=== PATIENT | male | born 1955 | race Caucasian/White ===

== ENCOUNTER 2018-06-16 02:16 | Outpatient (CLI) | payer BC, SELFPAY ==
[2018-06-16 11:21] LABS: Anion Gap 9.7 mmol/L (3-11); BUN 18 mg/dL (7-18); CO2 28.3 mmol/L (21.0-32.0); CREATININE 1.04 mg/dL (0.70-1.30); Calcium 9.3 mg/dL (8.5-10.1); Chloride 102 mmol/L (98-107); Glucose 116 mg/dL (70-100); Potassium 4.4 mmol/L (3.5-5.1); Sodium 140 mmol/L (136-145)
== END 2018-06-16 02:36 ==
PROVIDERS: PCP Family Medicine; Visit Provider Family Medicine
DX: I10 Essential (primary) hypertension (principal)
CPT/HCPCS: 36415; 80048

== ENCOUNTER 2019-06-05 01:23 | Outpatient (CLI) | payer BC, SELFPAY ==
[2019-06-05 11:37] LABS: Anion Gap 6.2 mmol/L (3-11); BUN 19 mg/dL (7-18); CO2 31.8 mmol/L (21.0-32.0); CREATININE 0.89 mg/dL (0.70-1.30); Calcium 9.4 mg/dL (8.5-10.1); Calculated LDL 137 mg/dL; Chloride 103 mmol/L (98-107); Cholesterol 178 mg/dL (<200); Glucose 116 mg/dL (74-106); HDL Cholesterol 31 mg/dL (40-60); Potassium 4.6 mmol/L (3.5-5.1); Sodium 141 mmol/L (136-145); Triglyceride 54 mg/dL (<150)
== END 2019-06-05 01:43 ==
PROVIDERS: PCP Family Medicine; Visit Provider Family Medicine
DX: E78.5 Hyperlipidemia, unspecified (principal); I10 Essential (primary) hypertension
CPT/HCPCS: 36415; 80048; 80061

== ENCOUNTER 2020-03-03 04:15 | Outpatient (CLI) | payer BC, SELFPAY ==
[2020-03-03 13:20] LABS: TSH 13.59 uIU/mL (0.36-3.74)
== END 2020-03-03 04:35 ==
LOC: LBO 04:15 → LOS 09:44
PROVIDERS: PCP Nurse Practitioner Family; Visit Provider Nurse Practitioner Family
DX: E03.9 Hypothyroidism, unspecified (principal); I10 Essential (primary) hypertension
CPT/HCPCS: 36415; 83036; 84439; 84443

== ENCOUNTER → 2020-04-13 04:14 | Outpatient (CLI) | payer BC, SELFPAY ==
[2020-04-13 17:07] LABS: Calculated LDL 132 mg/dL (<100); Cholesterol 181 mg/dL (<200); HDL Cholesterol 30 mg/dL (40-60); TSH 5.68 uIU/mL (0.36-3.74); Triglyceride 98 mg/dL (<150)
== END ==
PROVIDERS: PCP Nurse Practitioner Family; Visit Provider Nurse Practitioner Family
DX: E03.9 Hypothyroidism, unspecified (principal); E78.2 Mixed hyperlipidemia; Z12.5 Encounter for screening for malignant neoplasm of prostate; Z80.42 Family history of malignant neoplasm of prostate
CPT/HCPCS: 36415; 80061; 84153; 84443

== ENCOUNTER 2020-06-03 03:41 | Outpatient (CLI) | payer BC, SELFPAY ==
[2020-06-03 17:10] LABS: FREE T4 1.18 ng/dL (0.76-1.46); TSH 0.16 uIU/mL (0.36-3.74)
== END 2020-06-03 04:01 ==
PROVIDERS: Nurse Practitioner Family; PCP Nurse Practitioner Family; Visit Provider Nurse Practitioner Family
DX: E03.9 Hypothyroidism, unspecified (principal)
CPT/HCPCS: 36415; 84439; 84443

== ENCOUNTER 2020-11-18 04:08 | Outpatient (CLI) | payer BC, SELFPAY ==
--- NOTE | 2020-11-18 16:11 | DI.RAD_ITS ---
Exam(s) XR SHOULDER RT COMPLETE 2+V EXAM: XR SHOULDER RT COMPLETE 2+V CLINICAL HISTORY: RT SHOULDER PAIN, TECHNIQUE: COMPARISON: No exams were available for comparison FINDINGS: Five views were obtained. The cartilaginous joint space of the glenohumeral joint may be slightly na rrowed. There are mild marginal osteophytes of the glenoid and humeral head. Mild hypertrophic dege nerative changes of the AC joint noted as well. No other significant bony or soft tissue change seen . IMPRESSION: Moderate degenerative changes of glenohumeral and AC joint. RADIATION DOSE DELIVERED: Total DLP
== END 2020-11-18 04:28 ==
PROVIDERS: PCP Nurse Practitioner Family; Visit Provider Chiropractor Orthopedic
DX: M25.511 Pain in right shoulder (principal); M19.011 Primary osteoarthritis, right shoulder
CPT/HCPCS: 73030

== ENCOUNTER 2021-08-14 03:19 | Outpatient (CLI) | payer BC, SELFPAY ==
[2021-08-14 18:50] LABS: ALT 31 U/L (16-63); AST 15 U/L (15-37); Alkaline Phosphatase 96 U/L (46-116); Anion Gap 7.1 mmol/L (3-11); BUN 18 mg/dL (7-18); Bilirubin, Total 0.4 mg/dL (0.2-1.0); CO2 31.9 mmol/L (21.0-32.0); Calcium 9.6 mg/dL (8.5-10.1); Chloride 101 mmol/L (98-107); Glucose 136 mg/dL (74-106); Potassium 3.6 mmol/L (3.5-5.1); Sodium 140 mmol/L (136-145); TSH 22.96 uIU/mL (0.36-3.74); Total Protein 7.3 g/dL (6.4-8.2)
== END 2021-08-14 03:20 | disposition home or self-care (01) ==
LOC: LBO 03:19
PROVIDERS: PCP Nurse Practitioner Family; Visit Provider Nurse Practitioner Family
DX: I10 Essential (primary) hypertension (principal); E03.9 Hypothyroidism, unspecified
CPT/HCPCS: 36415; 80053; 84443

== ENCOUNTER 2022-08-24 01:29 | Outpatient (CLI) | payer MEDICARE, SELFPAY ==
[2022-08-24 12:47] LABS: CREATININE 1.1 mg/dL (0.70-1.30); Calculated LDL 98 mg/dL (<100); Cholesterol 146 mg/dL (<200); Estimated GFR 74.04 (mL/min/1.73m2); HDL Cholesterol 31 mg/dL (40-60); Potassium 4.3 mmol/L (3.5-5.1); TSH 2.55 uIU/mL (0.36-3.74); Triglyceride 87 mg/dL (<150)
== END 2022-08-24 01:30 | disposition home or self-care (01) ==
LOC: LOS 01:30
PROVIDERS: PCP Nurse Practitioner Family; Visit Provider Nurse Practitioner Family
DX: E03.9 Hypothyroidism, unspecified (principal); I10 Essential (primary) hypertension; E78.5 Hyperlipidemia, unspecified; R13.10 Dysphagia, unspecified
CPT/HCPCS: 36415; 80061; 99214; 99242; 82565; 84132; 84443

== ENCOUNTER 2022-08-30 10:33 | Day surgery (SDC) | payer MEDICARE, SELFPAY ==
[2022-08-30 10:55] VITALS: BP 170/99; PULSE 57; RESP 16; TEMP 36.4; O2SAT 99
--- NOTE | 2022-08-30 11:10 | W.ANESPRE ---
General Info Date of Service Date Performed: 08/30/22 Height: 5 ft 6 in Weight: 90.9 kg Body Mass Index (BMI): 32.3 Surgical Procedure: Operation Date: 08/30/22 12:35 Proposed Procedure Side Surgeon p Gastroscopy with Possible Dilation Diogenes Serrano MD Meds Allergies and Home Medications Allergies Allergy/AdvReac Type Severity Reaction Status Date / Time No Known Allergies Allergy Verified 08/29/22 10:09 Home Medication Medication Instructions Recorded lorazepam 0.5 mg tablet 0.5 mg PO as directed PRN #5 tabs 05/30/18 sildenafil 100 mg tablet 100 mg PO ONCE #7 tabs 06/02/19 aspirin 81 mg tablet,delayed 81 mg PO DAILY 07/12/21 release levothyroxine 125 mcg tablet 125 mcg PO DAILY #90 tab-caps 08/18/21 lovastatin 40 mg tablet 80 mg PO HS #180 tabs 02/23/22 sertraline 50 mg tablet 50 mg PO DAILY #90 tab-caps 06/07/22 omeprazole 20 mg capsule,delayed 20 mg PO DAILY #90 tab-caps 06/27/22 release lisinopril 30 mg tablet 30 mg PO DAILY #90 tab-caps 08/09/22 tetanus,diphtheria tox ped(PF) 5 0.5 ml IM ONCE #0.5 mL 08/09/22 Lf unit-25 Lf unit/0.5 mL IM susp Current Visit Medications: Current Medications Generic Name Dose Route Start Last Admin Trade Name Freq PRN Reason Stop Dose Admin Ringer's Solution 1,000 mls @ 80 mls/hr 08/30/22 06:00 IV 09/28/22 23:59 INFUSION SAM IV Miscellaneous Supplies 1 each 08/30/22 06:00 Iv Access IV 09/28/22 23:59 DIRECTED SAM Sodium Chloride 0 ml 08/30/22 06:00 Normal Saline Flush 10 Ml Syr IV 09/28/22 23:59 PRN PRN Sodium Chloride 0 ml 08/30/22 06:00 Normal Saline 10 Ml Vial IJ 09/28/22 23:59 DIRECTED PRN Sterile Water 0 ml 08/30/22 06:00 Water,Injection,Sterile 10 Ml Vial IJ 09/28/22 23:59 DIRECTED PRN PFSH Active Problems Active Problems: Problem Status Onset Code Essential hypertension 01/15/14 I10 Anxiety 01/04/17 F41.9 Carotid artery stenosis I65.29 Esophagitis 09/24/14 K20.9 Hyperlipidemia E78.5 Hypothyroidism E03.9 Prediabetes R73.03 Impingement syndrome of right shoulder M75.41 Tendonitis of long head of biceps brachii of right shoulder M75.21 Vertigo R42 Nail dystrophy L60.3 Difficulty swallowing R13.10 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 GERD (gastroesophageal reflux disease) K21.9 Medical History Medical History (Updated 08/30/22 @ 11:02 by Stephanie Tovar) Cardiovascular disease Family history of prostate cancer in father FH: carotid endarterectomy FH: carotid endarterectomy Tibia fracture Surgical History Surgical History Colonoscopy - IV Sedation (04/09/16) Status post carotid endarterectomy Tobacco Smoking/Tobacco Use Status: Never Passive smoking exposure: Yes Second hand exposure: Yes Alcohol Alcohol Intake: current Alcohol intake frequency: a few times a week Alcohol type: hard liquor Substance Use Substance use: Never Substance use type: does not use Vital Signs and Lab Results Vital Signs Most Recent Vital Signs in EMR: Most Recent Vital Signs Temp Pulse Resp BP Pulse Ox 36.4 C L 57 L 16 170/99 H 99 08/30/22 10:55 08/30/22 10:55 08/30/22 10:55 08/30/22 10:55 08/30/22 10:55 Lab Results Blood Type / Crossmatch: No Data to Display Complete Blood Count: No Data to Display Complete Metabolic Panel: Potassium 4.3 mmol/L (3.5-5.1) 08/24/22 08:02 Creatinine 1.1 mg/dL (0.70-1.30) 08/24/22 08:02 Est GFR (CKD-EPI 2020) 74.04 (mL/min/1.73m2) 08/24/22 08:02 Liver Function Panel: No Data to Display Coagulation Panel: No Data to Display Cardiac Panel: No Data to Display Arterial Blood Gas: No Data to Display Venous Blood Gas: No Data to Display Pancreas Panel: No Data to Display Thyroid Panel: Thyroid Stimulating Hormone (TSH) 2.55 uIU/mL (0.36-3.74) 08/24/22 08:02 Infectious Disease: No Data to Display Blood Cultures: No Data to Display Toxicology Panel: No Data to Display Anesthesia Assessment and Plan Anesthesia History Personal History: No History of Anesthesia Complications Family History: No Family History of Anesthesia Complications Exercise Tolerance Exercise Tolerance: Metabolic Equivalents>4 Pertinent Negatives Pertinent Negatives: No Symptoms of GERD Cardiac & Pulmonary Exam Cardiac Exam: Normal S1/S2 Heart Sounds Pulmonary Exam: Clear Bilateral Breath Sounds Implantable Cardiac Device Does patient have a Pacemaker or an ICD?: No Airway Exam Known Difficult Airway: No Mallampati Class: 3 Mouth Opening: Normal (> 3cm) Thyromental Distance: Greater than 3 cm Neck Range of Motion: Full ROM Neck Circumference: Thick Teeth Condition: Normal Dentition ASA Classification ASA Score: ASA 2 Emergency Case?: No NPO Status NPO Status: NPO Clears >2 hours, Solids >8 hours Anesthesia Plan Resuscitation Status: Full Code Anesthesia Technique: General Anesthesia Airway Planned: Natural Airway Monitors Used: Standard Monitors
[2022-08-30] MEDS: Lactated Ringers 1,000 ML 80 ML IV (11:18)
[2022-08-30 11:40] VITALS: BMI 32.3
--- NOTE | 2022-08-30 11:42 | W.SURGCON ---
Date of service: 08/30/22 Time of Service: 11:45 Assessment and Plan Assessment and plan (1) GERD (gastroesophageal reflux disease): Status: Chronic Assessment and plan: 66-year-old man with chronic, mild dysphagia symptoms in the setting of long?standing GERD that is adequately treated(clinically) with PPI. There is no endoscopic report of stricture, Marshall's esophagus and no report of endoscopic dilation. There is endoscopic report of a 3-4 cm hiatal hernia. I suspect his symptoms of swallowing are related to his hiatal hernia(which was moderate in size 8 years ago) in conjunction with acid reflux also related to the hiatal hernia and his body habitus (BMI 32). He needs biopsies of his esophagus to rule out eosinophilic esophagitis as a potential cause of mild and chronic dysphagia and also biopsies would be helpful to assess for whether acid reflux is really an issue. His hiatal hernia might actually be a paraesophageal hernia if it is as big as mentioned. Will not be doing any dilating today but we will simply assess his foregut to get a better understanding of what is actually going on there. I explained this to him in simple and straightforward details and he understands and agrees with this management strategy. Overall plan: EGD History of Present Illness Narrative: I met Mr. Jenkins at the bedside before his EGD procedure. We discussed his symptoms and prior procedures. He self?reports that he had issues swallowing 8 years ago. He presented to the emergency department because of it. He has had 1 EGD done which was related to that event. It is his understanding that his esophagus was stretched at that time. He is not anticipating having anything stretched again today but just wants it looked at. He does not know anything about a hiatal hernia. Since then he was placed on omeprazole and his symptoms drastically improved and he reports that he has not really had any problems since. Certainly he has no new problems. He does say that when he swallows he has to be careful and sometimes certain foods feel like there close to getting stuck but nothing has gotten completely stuck and began, nothing is worse than it has been. He essentially says that the way he is this year in 2022 [address] he has been for many years. His concern is to reevaluate his esophagus and make sure that nothing bad is happening there. We reviewed his prior operative note which describes finding a 3-4 cm hiatal hernia, mild gastritis and visible evidence of reflux esophagitis. There is no mention in the scope of esophagus stricture and there is no mention of esophagus dilation. From what I can gather from the chart, biopsy was only done of the stomach and not of the esophagus lining. He has never had foregut or epigastric surgery. PFSH All Active Problems (Updated 08/30/22 @ 11:02 by Stephanie Tovar) Essential hypertension (Chronic 07/01/13) Anxiety (Chronic 01/04/17) Carotid artery stenosis (Acute) Esophagitis (Chronic 09/24/14) Hyperlipidemia (Chronic) Hypothyroidism (Chronic) Prediabetes (Chronic) Impingement syndrome of right shoulder (Acute) Tendonitis of long head of biceps brachii of right shoulder (Acute) Vertigo (Acute) Nail dystrophy (Acute) Difficulty swallowing (Acute) Atrophic testicle (Acute) GERD (gastroesophageal reflux disease) (Chronic) Medical History (Updated 08/30/22 @ 11:02 by Stephanie Tovar) Cardiovascular disease Family history of prostate cancer in father FH: carotid endarterectomy FH: carotid endarterectomy Tibia fracture Surgical History Colonoscopy - IV Sedation (04/09/16) Status post carotid endarterectomy Family History (Updated 07/27/21 @ 15:21 by Lena Hernandez) Mother Essential hypertension Heart disease Hyperlipidemia Stroke Father Diabetes Stroke Prostate cancer Colon cancer Brother Essential hypertension Hyperlipidemia Maternal Grandfather No problems noted. Paternal Grandfather , UNKNOWN at age 47. No problems noted. Maternal Grandmother No problems noted. Paternal Grandmother No problems noted. Sister Diabetes Sister Heart disease Other Family hx of prostate cancer Social History (Updated 08/09/22 @ 18:16 by Mary Lomax) Smoking/Tobacco Use Status: Never Second Hand Exposure: Yes Smoking risk assessment performed?: Yes Alcohol Intake: current Alcohol Intake frequency: a few times a week Alcohol type: hard liquor Drug use: Never Substance use type: does not use Caregiver/Support person: No Household members: spouse Housing: house Communication Needs: None Do you need help understanding health information?: Rarely Pets and animals: Yes Pets and animals: dog(s) Sexually active: Yes Do you think of yourself as: straight/heterosexual Current gender identity: male What is your relationship status?: How often do you talk on the phone with friends or family?: three or more times per week How often do you get together with friends or relatives?: once per week How often do you attend catholic or oriental orthodox services?: 1-3 times per year Do you belong to any clubs or organized social groups?: yes Panel score (0-1 are the most socially isolated patients): 3 What type of physical activity do you participate in: walking Duration: 30-45 minutes/day Frequency: 3-4 times per week Ame/Holiness: Jewish Special ame needs: No Seatbelt use: always Helmet use: No Drive intox or ride w/intox stacker driver: No Do you feel safe at home: Yes Do you feel safe in your relationship?: Yes Exam Narrative Exam Narrative: General: Nontoxic, comfortable and interactive Neuro: Alert and oriented x3 Psych: Appropriate mood and affect, good insight and understanding into his conditions Chest: Nonlabored breathing, no wheezing Heart: Regular Results Last Vital Signs Temp 97.5 F L 08/30/22 10:55 Pulse 57 L 08/30/22 10:55 Resp 16 08/30/22 10:55 BP 170/99 H 08/30/22 10:55 Pulse Ox 99 08/30/22 10:55
--- NOTE | 2022-08-30 11:54 | W.PM.ENDDOP ---
Date of service: 08/30/22 Time of Service: 12:16 Endoscopy Report PROCEDURE DESCRIPTION: Procedures performed: 1.? 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 It is controlled with PPI. For the last 8 years he has had chronic dysphagia. Rare upper endoscopy 8 years ago showed hiatal hernia and esophagitis. He then started PPI therapy and says his symptoms drastically improved and have remained improved though he still experiences some slight issues with swallowing. Findings: - D3, D2 and D1 - normal - no inflammation or ulcers - Pylorus - patent.? No bile reflux visualized during procedure. - Antrum - looks normal visually - biopsies taken to rule out occult H. pylori - Stomach Body - normal appearance - Fundus -? Normal appearance.? No polyps. - Hiatus - Retroflexion showed a moderate?size type III paraesophageal hiatal hernia. Hernia measures approximately(GE junction 3-4 cm above the diaphragm). - Esophagus - Distal esophagus does not look acutely or actively inflamed but there is mild/minimal circumferential scarring(probably related to active GERD years ago) and there are 2 very small (subcentimeter) strips extending up into the esophagus that visually appear to be Marshall's esophagus. In classic fashion, the distal esophagus has a slight fold/kink to it causing a valve?affect that can be appreciated visually and is related to the hernia. This is the likely cause of the dysphagia. Cold forceps biopsies were taken of the Marshall's segments. Separately cold forceps biopsies were taken of the distal esophagus and midesophagus to rule out eosinophilic esophagitis (not suspected). - Cords/hypopharynx - Normal OVERALL - moderate?size type III paraesophageal hernia is causing a valve?effect on the distal esophagus which is the underlying problem for his swallowing. Surveillance/follow-up recommendations: If Marshall's esophagus is confirmed on biopsy, I recommend surveillance every 3-5 years. The paraesophageal hernia is fixable and the patient should be counseled that minimally invasive paraesophageal hernia repair can be considered as a management strategy/option depending on his overall goals. BMI needs to be under 30 to be considered for paraesophageal hernia repair. Complications: None Blood loss: Minimal Specimens:? YES Procedure in detail: Written consent was obtained from the patient who was in agreement with the risks, benefits and indications of the procedure.? We went to the endoscopy suite and laid the patient in left lateral decubitus position.? Anesthesia was administered which was tolerated well.? A timeout was performed and when we are all in agreement we began the procedure. A well?lubricated endoscope was advanced without difficulty down the esophagus, into the stomach, through a patent pylorus and into the duodenum.? It was then slowly pulled back with findings noted above. The scope was then removed and the patient tolerated the procedure well and was then taken to the PACU in hemodynamically stable condition.
--- NOTE | 2022-08-30 12:00 | ESO_PTH ---
PATIENT: Tyler Enamorado LOC: GLO U#:[id number] AGE/SX: 66/M ROOM: RE08/30/[address]: Diogenes Serrano : 1955 BED: DIS: 08/30/2022 SPEC #: [id number] RECD: 08/30/22 12:46 STATUS: SHANTE RE #: [id number] TURNER: 08/30/22 12:[address]: Diogenes Serrano DEPT: Surgical Specimen RECD BY: Jazmin Fraser ENTERED: 08/30/22 12:47 SP TYPE: Eso EMANI DR: Timoteo Jama, FL[employer]K OFFICER Tissues: 1 - STOMACH BIOPSY 2 - ESOPHAGUS BIOPSY 3 - ESOPHAGUS BIOPSY 4 - ESOPHAGUS BIOPSY Procedures: GROSS AND MICRO LEVEL 4 Comments: [id number]
[2022-08-30 12:20] VITALS: BP 131/82; PULSE 70; RESP 18; TEMP 36.9; O2SAT 92
--- NOTE | 2022-08-30 13:03 | W.ANESPOSTOP ---
Postoperative Evaluation Date, Time and Location Date Performed: 08/30/22 Time Performed: 13:04 Patient Location: Day Surgery Unit Vital Signs Most Recent Imported Vital Signs: Most Recent Vital Signs Temp Pulse Resp BP Pulse Ox 36.9 C 70 18 131/82 92 08/30/22 12:20 08/30/22 12:20 08/30/22 12:20 08/30/22 12:20 08/30/22 12:20 Pain Score Most Recent Pain Score: Most Recent Pain Score Pain Level 0 08/30/22 12:20 Assessment Mental Status: Awake (Alert & Oriented to Patient Baseline) Airway and Respiratory Function: Patent airway with normal (patient baseline) respiratory exam Cardiovascular Function: Hemodynamically Stable Hydration Status: Adequately Hydrated Nausea & Vomiting: No Nausea or Vomiting Pain: Pt. Denies Any Pain Peripheral Nerve Block: Patient did not receive a nerve block
== END 2022-08-30 13:15 | disposition home or self-care (01) ==
PROVIDERS: PCP Nurse Practitioner Family; Visit Provider Student in an Organized Health Care Education/Training Program
PROC: 0D758ZZ Dilation of Esophagus, Via Natural or Artificial Opening Endoscopic (ICD-10-PCS; CPT 43239; principal; 2022-08-30 12:30)
DX: K21.9 Gastro-esophageal reflux disease without esophagitis (principal); R13.10 Dysphagia, unspecified; K22.70 Barrett's esophagus without dysplasia; K44.9 Diaphragmatic hernia without obstruction or gangrene; K22.89 Other specified disease of esophagus
CPT/HCPCS: 43239; 88305; J2704

== ENCOUNTER → 2022-09-12 14:23 | Outpatient (BNVA) | payer MEDICARE, SELFPAY | PROVIDERS: PCP Nurse Practitioner Family; Referring Provider Nurse Practitioner Family; Visit Provider Surgery | DX: Z48.815 Encounter for surgical aftercare following surgery on the digestive system (principal) | CPT/HCPCS: 99213 ==

== ENCOUNTER 2022-10-26 01:12 | Outpatient (CLI) | payer MEDICARE, SELFPAY | END 2022-10-26 01:13 | disposition home or self-care (01) | PROVIDERS: PCP Nurse Practitioner Family; Visit Provider Nurse Practitioner Family | DX: R73.03 Prediabetes (principal) | CPT/HCPCS: 36415; 83036 ==

== ENCOUNTER 2022-12-17 15:57 | Outpatient (CLI) | payer MEDICARE, SELFPAY ==
[2022-12-17 15:41] LABS: Abs Immature Grans 0.06 10^3/uL (0.0-0.06); Absolute Basophil Count 0.05 10^3/uL (0.0-0.2); Absolute Eosinophil Count 0.17 10^3/uL (0.0-0.7); Absolute Lymphocyte Count 2.52 10^3/uL (1.2-3.4); Absolute Monocyte Count 0.98 10^3/uL (0.1-0.8); Absolute Neutrophil Count 6.23 10^3/uL (1.2-6.7); Basophils % 0.5; Eosinophils % 1.7; HCT 43.4 % (40.0-50.0); HGB 14.4 g/dL (13.5-17.5); Immature Grans % 0.6; Lymphocytes % 25.2; MCH 28.5 pg (27.0-33.0); MCHC 33.2 % (32.0-36.0); MCV 86 fL (80-95); MPV 9.5 fL (8.0-11.0); Monocytes % 9.8; Neutrophils % 62.2; Platelet Count 374 10^3/uL (130-400); RBC 5.06 10^6/uL (4.36-5.78); RDW 13.1 % (11.8-14.1); RDW-SD 40.6 fL; WBC 10.01 10^3/uL (4.4-10.8)
[2022-12-17 16:46] LABS: ALT 33 U/L (16-63); AST 18 U/L (15-37); Alkaline Phosphatase 128 U/L (46-116); Anion Gap 10.2 mmol/L (3-11); BUN 54 mg/dL (7-18); Bilirubin, Total 0.4 mg/dL (0.2-1.0); CO2 26.8 mmol/L (21.0-32.0); Calcium 9.7 mg/dL (8.5-10.1); Chloride 100 mmol/L (98-107); Estimated GFR 35.91 (mL/min/1.73m2); Glucose 95 mg/dL (74-106); Potassium 4.9 mmol/L (3.5-5.1); Sodium 137 mmol/L (136-145); Total Protein 7.8 g/dL (6.4-8.2)
[2022-12-17 17:02] LABS: Lactate 1.1 mmol/L (0.6-1.4)
== END 2022-12-17 15:58 | disposition home or self-care (01) ==
LOC: LBO 15:58
PROVIDERS: PCP Nurse Practitioner Family; Visit Provider Physician Assistant
DX: R53.83 Other fatigue (principal); J06.9 Acute upper respiratory infection, unspecified; N39.0 Urinary tract infection, site not specified
CPT/HCPCS: 36415; 80053; 83605; 85025

== ENCOUNTER 2022-12-24 21:56 | Outpatient (REF) | payer MEDICARE, SELFPAY ==
[2022-12-24 22:31] LABS: BUN 24 mg/dL (7-18); CREATININE 1.4 mg/dL (0.70-1.30); Calcium 9.4 mg/dL (8.5-10.1); Chloride 104 mmol/L (98-107); Estimated GFR 55.09 (mL/min/1.73m2); Glucose 94 mg/dL (74-106); Potassium 4.5 mmol/L (3.5-5.1); Sodium 140 mmol/L (136-145)
== END 2022-12-24 21:57 | disposition home or self-care (01) ==
LOC: LBN 21:56
PROVIDERS: PCP Nurse Practitioner Family; Visit Provider Nurse Practitioner Family
DX: E11.9 Type 2 diabetes mellitus without complications (principal)
CPT/HCPCS: 80048

== ENCOUNTER → 2023-01-02 14:49 | Outpatient (BNVA) | payer MEDICARE, SELFPAY | PROVIDERS: PCP Nurse Practitioner Family; Referring Provider Nurse Practitioner Family; Visit Provider Nurse Practitioner Gerontology | DX: N50.0 Atrophy of testis (principal); N40.0 Benign prostatic hyperplasia without lower urinary tract symptoms; N52.9 Male erectile dysfunction, unspecified; Z80.42 Family history of malignant neoplasm of prostate; E11.9 Type 2 diabetes mellitus without complications; I10 Essential (primary) hypertension | CPT/HCPCS: 51798; 99214 ==

== ENCOUNTER → 2023-08-21 15:07 | Outpatient (BNVA) | payer MEDICARE, SELFPAY | PROVIDERS: PCP Nurse Practitioner Family; Referring Provider Nurse Practitioner Family; Visit Provider Podiatrist | DX: L60.3 Nail dystrophy (principal) | CPT/HCPCS: 11721 ==

== ENCOUNTER 2023-09-05 05:43 | Outpatient (CLI) | payer MEDICARE, SELFPAY ==
[2023-09-05 12:48] LABS: CREATININE 1.1 mg/dL (0.70-1.30); Calculated LDL 112 mg/dL (<100); Cholesterol 180 mg/dL (<200); Estimated GFR 73.58 (mL/min/1.73m2); HDL Cholesterol 30 mg/dL (40-60); Potassium 4.1 mmol/L (3.5-5.1); TSH (W/Ref FT4) 2.72 uIU/mL (0.36-3.74); Triglyceride 190 mg/dL (<150)
== END 2023-09-05 05:44 | disposition home or self-care (01) ==
LOC: LOS 05:43
PROVIDERS: PCP Nurse Practitioner Family; Visit Provider Nurse Practitioner Family
DX: I10 Essential (primary) hypertension (principal); E03.9 Hypothyroidism, unspecified; E78.2 Mixed hyperlipidemia
CPT/HCPCS: 36415; 80061; 82565; 84132; 84443

== ENCOUNTER 2023-10-22 15:41 | Outpatient (CLI) | payer MEDICARE, SELFPAY ==
--- NOTE | 2023-10-22 09:45 | DI.RAD_ITS ---
Exam(s) XR ELBOW RT COMPLETE EXAM: XR ELBOW RT COMPLETE CLINICAL HISTORY: evluation of elbow. TECHNIQUE: 2D digital imaging was performed of the left elbow. Three images were obtained. AP, lat eral and oblique views were obtained. COMPARISON: No exams were available for comparison FINDINGS: BONES: No acute fracture is present. No bony destructive lesion is seen. There is an enthesophyte at the olecranon. There is overlying soft tissue swelling. JOINTS: The elbow is normally aligned. No joint effusion is seen. SOFT TISSUE: Normal. IMPRESSION: Prominent soft tissue swelling overlying the olecranon which can be seen with inflammatory arthropath y such as gout. DATA REPOSITORY: RADIATION DOSE DELIVERED:
== END 2023-10-22 15:42 | disposition home or self-care (01) ==
LOC: DIORS 15:41
PROVIDERS: PCP Nurse Practitioner Family; Visit Provider Student in an Organized Health Care Education/Training Program
DX: M70.21 Olecranon bursitis, right elbow (principal); E11.9 Type 2 diabetes mellitus without complications
CPT/HCPCS: 99213; 73080

== ENCOUNTER → 2023-12-25 15:20 | Outpatient (BNVA) | payer MEDICARE, SELFPAY | PROVIDERS: PCP Nurse Practitioner Family; Referring Provider Nurse Practitioner Family; Visit Provider Podiatrist | DX: L60.3 Nail dystrophy (principal); B35.1 Tinea unguium; M79.674 Pain in right toe(s); M79.675 Pain in left toe(s); I70.203 Unspecified atherosclerosis of native arteries of extremities, bilateral legs; E11.42 Type 2 diabetes mellitus with diabetic polyneuropathy | CPT/HCPCS: 11721 ==

== ENCOUNTER → 2024-01-01 15:13 | Outpatient (BNVA) | payer MEDICARE, SELFPAY | PROVIDERS: PCP Nurse Practitioner Family; Referring Provider Nurse Practitioner Family; Visit Provider Nurse Practitioner Gerontology | DX: N40.0 Benign prostatic hyperplasia without lower urinary tract symptoms (principal); N52.9 Male erectile dysfunction, unspecified; N50.0 Atrophy of testis; Z80.42 Family history of malignant neoplasm of prostate | CPT/HCPCS: 51798; 99214 ==

== ENCOUNTER → 2024-04-29 14:22 | Outpatient (BNVA) | payer MEDICARE, SELFPAY | PROVIDERS: PCP Nurse Practitioner Family; Referring Provider Nurse Practitioner Family; Visit Provider Podiatrist | DX: L60.3 Nail dystrophy (principal); B35.1 Tinea unguium; E11.9 Type 2 diabetes mellitus without complications; M79.674 Pain in right toe(s); M79.675 Pain in left toe(s) | CPT/HCPCS: 11721 ==

== ENCOUNTER 2024-05-12 15:34 | Outpatient (CLI) | payer MEDICARE, SELFPAY ==
--- NOTE | 2024-05-12 14:22 | DI.RAD_ITS ---
Exam(s) XR KNEE RT 3V AP,LAT,AB EXAM: XR KNEE RT 3V AP,LAT,AB CLINICAL HISTORY: RIGHT KNEE PAIN. TECHNIQUE: 2D digital imaging was performed. COMPARISON: CR RIGHT KNEE LIMITED 1 OR 2 VIEW from 05/27/2014 FINDINGS: 3 views No obvious acute fractures. There is moderate narrowing of the medial compartment which has progress ed since images of 2013/10 years ago. Lateral compartment exhibits normal height as does the retro patellar space on the merchant's view. There is an unchanged prominent caudal point enthesophyte off the mid aspect of the anterior patella associated with the upper attachment of the patellar ligament, unchanged. There is mild soft tissue swelling over this area. Slightly prominent inferior pole of the patella is also unchanged from 2014 . However, above the level the patella there now a few calcifications which were not previously present . There is a 1.0 x 0.5 cm calcification just above the anterior aspect of the superior pole of mora la within the quadriceps tendon. In addition above this level and slightly posteriorly there is a sm aller 6 x 5 mm calcific density which is either in the posterior aspect of quadriceps tendon or the s uprapatellar bursa. There appears to be a small amount of increased joint fluid. IMPRESSION: Degenerative narrowing of the medial compartment which was not evident on images of 2014. Patellar and suprapatellar findings as above. Correlation with any quadriceps tendon symptomatology recommended. DATA REPOSITORY: RADIATION DOSE DELIVERED:
== END 2024-05-12 15:35 | disposition home or self-care (01) ==
LOC: DIORS 15:37
PROVIDERS: PCP Nurse Practitioner Family; Referring Provider Nurse Practitioner Family; Visit Provider Student in an Organized Health Care Education/Training Program
DX: M25.561 Pain in right knee (principal); M17.11 Unilateral primary osteoarthritis, right knee
CPT/HCPCS: 20610; 73562; J1010

== ENCOUNTER 2024-09-04 00:24 | Outpatient (CLI) | payer MEDICARE, SELFPAY ==
[2024-09-04 13:01] LABS: Anion Gap 7.9 mmol/L (3-11); BUN 15 mg/dL (7-18); CO2 28.1 mmol/L (21.0-32.0); CREATININE 1.1 mg/dL (0.70-1.30); Calcium 9.7 mg/dL (8.5-10.1); Calculated LDL 99 mg/dL (<100); Chloride 106 mmol/L (98-107); Cholesterol 146 mg/dL (<200); Estimated GFR 73.12 (mL/min/1.73m2); Glucose 95 mg/dL (74-106); HDL Cholesterol 34 mg/dL (>or=40); Potassium 3.7 mmol/L (3.5-5.1); Sodium 142 mmol/L (136-145); TSH (W/Ref FT4) 6.74 uIU/mL (0.36-3.74); Triglyceride 66 mg/dL (<150)
[2024-09-04 18:51] LABS: Hepatitis C Ab w Rflx HCV PCR Negative (Negative)
[2024-09-04 22:02] LABS: T4, Free 1.1 ng/dL (0.8-2.2)
== END 2024-09-04 00:25 | disposition home or self-care (01) ==
LOC: LOS 00:24
PROVIDERS: PCP Nurse Practitioner Family; Visit Provider Nurse Practitioner Family
DX: E03.9 Hypothyroidism, unspecified (principal); I10 Essential (primary) hypertension; Z11.59 Encounter for screening for other viral diseases; E78.2 Mixed hyperlipidemia; Z13.220 Encounter for screening for lipoid disorders
CPT/HCPCS: 36415; 80048; 80061; 86803; 84439; 84443

== ENCOUNTER → 2024-11-02 14:57 | Outpatient (BNVA) | payer MEDICARE, SELFPAY | PROVIDERS: PCP Nurse Practitioner Family; Referring Provider Nurse Practitioner Family; Visit Provider Podiatrist ==

== ENCOUNTER 2025-01-08 13:24 | Outpatient (CLI) | payer MEDICARE, SELFPAY ==
[2025-01-08 22:14] LABS: PSA, Diagnostic 3.4 ng/mL (<=4.5)
== END 2025-01-08 13:25 | disposition home or self-care (01) ==
LOC: LBO 13:25
PROVIDERS: PCP Nurse Practitioner Family; Visit Provider Nurse Practitioner Gerontology
DX: N40.0 Benign prostatic hyperplasia without lower urinary tract symptoms (principal); N52.9 Male erectile dysfunction, unspecified; N50.0 Atrophy of testis; Z80.42 Family history of malignant neoplasm of prostate
CPT/HCPCS: 36415; 84153

== ENCOUNTER → 2025-01-12 13:50 | Outpatient (BNVA) | payer MEDICARE, SELFPAY | PROVIDERS: PCP Nurse Practitioner Family; Referring Provider Nurse Practitioner Family; Visit Provider Nurse Practitioner Gerontology | DX: N40.0 Benign prostatic hyperplasia without lower urinary tract symptoms (principal); N52.9 Male erectile dysfunction, unspecified; N50.0 Atrophy of testis; Z80.42 Family history of malignant neoplasm of prostate; R39.9 Unspecified symptoms and signs involving the genitourinary system | CPT/HCPCS: 99214; 51798 ==

== ENCOUNTER → 2025-02-01 14:52 | Outpatient (BNVA) | payer MEDICARE, SELFPAY | PROVIDERS: PCP Nurse Practitioner Family; Referring Provider Nurse Practitioner Family; Visit Provider Podiatrist ==

== ENCOUNTER → 2025-05-18 14:53 | Outpatient (BNVA) | payer MEDICARE, SELFPAY | PROVIDERS: PCP Nurse Practitioner Family; Referring Provider Nurse Practitioner Family; Visit Provider Podiatrist ==